=== PATIENT | female | born 1980 | race Caucasian/White ===

== ENCOUNTER 2016-10-19 09:02 | Emergency (ER) | payer OTHER ==
[2016-10-19 09:09] VITALS: BP 136/86
[2016-10-19] MEDS ORDERED: Azithromycin 250 MG Tab ONE (09:46)
[2016-10-19] MEDS ORDERED: Azithromycin 250 MG Tab PO ONE (09:48)
--- NOTE | 2016-10-19 09:49 | EDM.PDOC ---
ED HPI GENERAL MEDICAL PROBLEM - General Chief Complaint: General Stated Complaint: SORE THROAT Time Seen by Provider: 10/19/16 09:15 Source of Information: Reports: Patient History Limitations: Reports: No Limitations - History of Present Illness INITIAL COMMENTS - FREE TEXT/NARRATIVE: 36-year-old female presents emergency room with complaints of sore throat since . She had a time and scheduled for Thursday to see Dr. Pascual but felt that her symptoms were progressively getting worse and was recommended to be seen in the emergency room for her sore throat. Does report a low-grade fever. She denies nausea or vomiting, ear pain, sinus congestion, cough, shortness of breath or abdominal pain. Onset: Gradual Onset Date: 10/16/16 Duration: Day(s):, Constant Location: Reports: Neck Severity: Severe Improves with: Reports: None Worsens with: Reports: None Context: Reports: Activity Associated Symptoms: Reports: Fever/Chills. Denies: cough w sputum, Nausea/ Vomiting, Shortness of Breath Treatments GROUTMAN: Reports: Acetaminophen Throat Pain Score (Numeric/FACES): 8 - Related Data Allergies Allergy/AdvReac Type Severity Reaction Status Date / Time No Known Allergies Allergy Verified 10/19/16 09:10 Home Meds: Home Meds . 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) Other OB/BYN History: has IUD Social & Family History - Family History Family Medical History: Noncontributory - Tobacco Use Smoking Status *Q: Never Smoker Second Hand Smoke Exposure: No - Caffeine Use Caffeine Use: Reports: Soda, Tea - Alcohol Use Days Per Week of Alcohol Use: 0 - Recreational Drug Use Recreational Drug Use: No ED ROS GENERAL - Review of Systems Review Of Systems: See Below ED EXAM, GENERAL - Physical Exam Exam: See Below Exam Limited By: No Limitations General Appearance: Alert, WD/WN, No Apparent Distress Course - Vital Signs Last Recorded V/S: Last Vital Signs Temp 99.1 F 10/19/16 09:05 Pulse 106 H 10/19/16 09:05 Resp 16 10/19/16 09:05 BP 136/86 10/19/16 09:05 Pulse Ox 97 10/19/16 09:05 - Orders/Labs/Meds Orders: Active Orders 24 hr Category Date Time Status CULTURE STREP A CONFIRMATION [RM] Stat Lab 10/19/16 09:10 Results STREP SCRN A RAPID W CULT CONF [] Stat Lab 10/19/16 09:10 Results Meds: Medications Discontinued Medications Generic Name Dose Route Start Last Admin Trade Name Cole PRN Reason Stop Dose Admin Azithromycin 500 mg 10/19/16 09:48 10/19/16 09:49 Zithromax PO 10/19/16 09:49 500 mg ONETIME ONE Administration Azithromycin Confirm 10/19/16 09:46 10/19/16 09:50 Zithromax Administered 10/19/16 09:47 Not Given Dose 500 mg .ROUTE .STK-MED ONE Departure - Departure Time of Disposition: 10:00 Disposition: Home, Self-Care 01 Clinical Impression: Tonsillitis with exudate - Discharge Information Instructions: Tonsillitis Referrals: Epifanio Pascual MD [Primary Care Provider] - Forms: ED Department Discharge Additional Instructions: 1. Zithromax 500 mg by mouth daily for 5 days 2. Chloraseptic spray for a painful sore mouth. 3. Continue to alternate Tylenol and ibuprofen for pain and fever 4. May try the Magic mouthwash every 4-6 hours as needed if the core septic spray does not resolve painful sore mouth. 5. Follow-up with primary care next week if her symptoms do not seem to be improving after 48 hours of antibiotics. - Problem List Review Problem List Initiated/Reviewed/Updated: Yes - My Orders Last 24 Hours: My Active Orders 10/19/16 09:10 CULTURE STREP A CONFIRMATION [RM] Stat STREP SCRN A RAPID W CULT CONF [] Stat - Assessment/Plan Last 24 Hours: My Active Orders 10/19/16 09:10 CULTURE STREP A CONFIRMATION [RM] Stat STREP SCRN A RAPID W CULT CONF [] Stat Assessment:: Tonsillitis with exudate Plan: 1. Azithromycin 500 mg daily for 5 days 2. May alternate Tylenol and ibuprofen for pain, and fevers. 3. Chloraseptic [place] for mouth pain. 4. Magic mouthwash you may fill if you don't feel the Chloraseptic [place] is helpful. 5. Follow-up with your primary care in 48 hours if you don't feel the antibiotic is improving your pain and symptoms and sore throat.
--- NOTE | 2016-10-19 09:59 | EDM.PDOC ---
ED HPI GENERAL MEDICAL PROBLEM - General Chief Complaint: General Stated Complaint: SORE THROAT Time Seen by Provider: 10/19/16 09:15 Source of Information: Reports: Patient History Limitations: Reports: No Limitations - History of Present Illness INITIAL COMMENTS - FREE TEXT/NARRATIVE: 36-year-old female presents to the emergency room with complaints of severe sore throat and mild low-grade fever. Patient reports he onset of the sore throat occurred on . She was scheduled to come in to primary care on Thursday to be evaluated. Patient reports her symptoms have gotten steadily worse and more painful and call Dr. Pascual this morning and and was recommended to have this evaluated and looked at. She denies any shortness of breath, cough, sputum production, ear pain. She denies any chest pain. No nausea or vomiting or gastrointestinal complaints. Onset: Gradual Onset Date: 10/16/16 Duration: Day(s):, Constant Location: Reports: Neck Quality: Reports: Sharp Severity: Severe Improves with: Reports: None Worsens with: Reports: None Context: Reports: Activity Associated Symptoms: Reports: Fever/Chills. Denies: cough w sputum, Nausea/ Vomiting, Shortness of Breath Treatments INSTRUCTIONAL DESIGNER: Reports: Acetaminophen, NSAIDS Throat Pain Score (Numeric/FACES): 8 - Related Data Allergies Allergy/AdvReac Type Severity Reaction Status Date / Time No Known Allergies Allergy Verified 10/19/16 09:10 Home Meds: Home Meds . 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 Denies: Ear Pain, Eye Pain, Sinus Problem Respiratory: Denies: Shortness of Breath, Cough, Sputum Cardiovascular: Denies: Chest Pain Endocrine: Reports: No Symptoms GI/Abdominal: Denies: Abdominal Pain : Reports: No Symptoms Musculoskeletal: Reports: No Symptoms Skin: Reports: No Symptoms Neurological: Reports: No Symptoms Psychiatric: Reports: No Symptoms Hematologic/Lymphatic: Reports: No Symptoms Immunologic: Reports: No Symptoms ED EXAM, ENT - Physical Exam Exam: See Below Exam Limited By: No Limitations General Appearance: Alert, WD/WN, Mild Distress Eye Exam: Bilateral Eye: EOMI, PERRL Ears: Normal External Exam, Normal Canal, Normal TMs Nose: Normal Inspection Mouth/Throat: Normal Gums, Normal Lips, Normal Teeth, Throat Pain, Tonsillar Erythema (left), Tonsillar Exudates, Tonsillar Swelling. No: Peritonsillar Mass , Pharyngeal Erythema, Throat Swelling, Tongue Swelling, Uvular Deviation, Uvular Edema Head: Atraumatic, Normocephalic Neck: Normal Inspection, Lymphadenopathy (L), Tender Lateral Respiratory/Chest: No Respiratory Distress, Lungs Clear, Normal Breath Sounds, No Accessory Muscle Use, Chest Non-Tender Cardiovascular: Normal Peripheral Pulses, Regular Rate, Rhythm, No Murmur Extremities: Normal Inspection Neurological: Alert, Oriented, No Motor/Sensory Deficits Course - Vital Signs Last Recorded V/S: Last Vital Signs Temp 99.1 F 10/19/16 09:05 Pulse 106 H 10/19/16 09:05 Resp 16 10/19/16 09:05 BP 136/86 10/19/16 09:05 Pulse Ox 97 10/19/16 09:05 - Orders/Labs/Meds Orders: Active Orders 24 hr Category Date Time Status CULTURE STREP A CONFIRMATION [] Stat Lab 10/19/16 09:10 Results STREP SCRN A RAPID W CULT CONF [] Stat Lab 10/19/16 09:10 Results Meds: Medications Discontinued Medications Generic Name Dose Route Start Last Admin Trade Name Frederickq PRN Reason Stop Dose Admin Azithromycin 500 mg 10/19/16 09:48 10/19/16 09:49 Zithromax PO 10/19/16 09:49 500 mg ONETIME ONE Administration Azithromycin Confirm 10/19/16 09:46 10/19/16 09:50 Zithromax Administered 10/19/16 09:47 Not Given Dose 500 mg .ROUTE .STK-MED ONE Departure - Departure Time of Disposition: 09:59 Disposition: Home, Self-Care 01 Condition: Good Clinical Impression: Tonsillitis with exudate - Discharge Information Instructions: Tonsillitis Referrals: Epifanio Pascual MD [Primary Care Provider] - Forms: ED Department Discharge Additional Instructions: 1. Zithromax 500 mg by mouth daily for 5 days 2. Chloraseptic spray for a painful sore mouth. 3. Continue to alternate Tylenol and ibuprofen for pain and fever 4. May try the Magic mouthwash every 4-6 hours as needed if the core septic spray does not resolve painful sore mouth. 5. Follow-up with primary care next week if her symptoms do not seem to be improving after 48 hours of antibiotics. - My Orders Last 24 Hours: My Active Orders 10/19/16 09:10 CULTURE STREP A CONFIRMATION [RM] Stat STREP SCRN A RAPID W CULT CONF [] Stat - Assessment/Plan Last 24 Hours: My Active Orders 10/19/16 09:10 CULTURE STREP A CONFIRMATION [RM] Stat STREP SCRN A RAPID W CULT CONF [] Stat Assessment:: Tonsillitis with exudate Plan: 1. Zithromax 500 mg by mouth daily for 5 days 2. Chloraseptic spray for a painful sore mouth. 3. Continue to alternate Tylenol and ibuprofen for pain and fever 4. May try the Magic mouthwash every 4-6 hours as needed if the core septic spray does not resolve painful sore mouth. 5. Follow-up with primary care next week if her symptoms do not seem to be improving after 48 hours of antibiotics.
== END 2016-10-19 10:00 | disposition home or self-care (01) ==
LOC: KA.ED 09:02
DX: J03.90 Acute tonsillitis, unspecified (principal)
CPT/HCPCS: 87081; 87430; 99283; A9270